=== PATIENT | female | born 1995 ===

== ENCOUNTER 2018-03-16 14:53 | Emergency (ER) | payer SELFPAY ==
[~2018-03-16] VITALS: Ht 157.5 cm; Wt 72.7 kg
[2018-03-16 14:57] VITALS: BP 159/130
== END 2018-03-16 15:35 | disposition left against medical advice (07) ==
LOC: EMS 14:54
DX: Z53.21 Procedure and treatment not carried out due to patient leaving prior to being seen by health care provider (principal)